=== PATIENT | female | born 1950 | race Asian ===

== ENCOUNTER → 2016-09-23 | Outpatient (CLI) | payer MEDICAID ==
--- NOTE | ~2016-09-23 | US128 ---
[id number] [facility] [address] [place], [place] [address] [id number] O MR#: [id number] Acc #: [id number] NAME: LUCIANA HOOD : 1950 SEX: F STUDY DATE/TIME: 09/23/2016 13:29 UNIT: [facility]US ROOM: STUDY DESCRIPTION: Thyroid Attending Physician: Ellen Gaming M.D. Referring Physician: Ellen Gaming M.D. Ordering Physician: Ellen Gaming M.D. Primary Care Physician: [facility], [facility]. MEDICAL IMAGING REPORT This report is preliminary unless electronic signature is present EXAM Ultrasound of the thyroid gland. INDICATIONS Abnormal chest CT showing thyroid nodules. This was performed on June 16, 2016. The nodules were identified on the right. TECHNIQUE [place]-scale and color Doppler sonographic images were obtained through the patient's thyroid gland. FINDINGS Right lobe of the thyroid gland measures 2.2 x 4.2 x 2.1 cm, left lobe measures 2.0 x 4.2 x 1.2 cm. The isthmus measures about 2 mm in thickness. The patient has 2 solid nodules within the right lobe of the thyroid gland. The more superiorly located nodule measures 1.9 x 1.6 x 1.7 cm. The nodule immediately inferior to it and is larger measuring up to 2.0 x 2.0 x 1.2 cm. No nodules are identified on the left. IMPRESSION 2 heterogeneous solid nodules identified within the right lobe of the thyroid gland both of which meet size criteria for percutaneous sampling. This is recommended. No nodules are seen on the left. Dictated by... Ida Young M.D. THIS IS AN ELECTRONICALLY VERIFIED REPORT Ida Young M.D. at 09/26/2016 4:51 PM JOHNSON/raina TD: 09/23/2016 16:56 JOB #: [id number] MEDICAL IMAGING REPORT Page 1 of 1 COPY
== END | disposition home or self-care (01) ==
LOC: CGUS 13:04
DX: E04.2 Nontoxic multinodular goiter (principal)
CPT/HCPCS: 76536